=== PATIENT | female | born 1975 | race African-American/Black ===

== ENCOUNTER 2016-10-31 12:52 | Emergency (ER) | payer OTHER ==
[2016-10-31 12:56] VITALS: BMI 20.3
[2016-10-31] MEDS ORDERED: IBUPROFEN 400 MG TABLET (FP) PO ONE ×2 (13:30→13:39)
--- NOTE | 2016-10-31 13:36 | PDOC ---
History of Present Illness - General History Source: Patient - History of Present Illness Timing/Duration: reports: changing over time Quality: reports: mild Abdominal Pain Onset Location: reports: generalized abdomen <Stanislaw Bradley - Last Filed: 10/31/16 13:31> <Michael Torres - Last Filed: 11/02/16 20:01> - General Chief Complaint: Pain Stated Complaint: ABD PAIN Time Seen by Provider: 10/31/16 13:18 Past History - Past Medical History Suicide Attempt (Hx): No Other medical history: NONE - Immunization History Td Vaccination: No Immunization Up to Date: No - Psycho/Social/Smoking Cessation Hx Anxiety: No Suicidal Ideation: No Smoking Status: No Smoking History: Never smoked Years of Tobacco Use: 0 Number of Cigarettes Smoked Daily: 0 Cigars Per Day: 0 Hx Alcohol Use: No Drug/Substance Use Hx: No Substance Use Type: None <Stanislaw Bradley - Last Filed: 10/31/16 13:31> <BrianMichael - Last Filed: 11/02/16 20:01> - Past Medical History Allergies/Adverse Reactions: Allergies Allergy/AdvReac Type Severity Reaction Status Date / Time Penicillins Allergy Mild Hives Verified 10/31/16 12:56 epinephrine Allergy Verified 10/31/16 12:56 Home Medications: Ambulatory Orders No Home Medications 0 dose .ROUTE UTDICT 09/20/12 Review of Systems - Review of Systems Constitutional: Yes: Chills. No: Fever ABD/GI: No: Constipated, Diarrhea, Nausea, Vomiting <Stanislaw Bradley Last Filed: 10/31/16 13:31> *Physical Exam - Vital Signs Last Vital Signs Temp Pulse Resp BP Pulse Ox 97.6 F 87 20 129/82 100 10/31/16 12:53 10/31/16 12:53 10/31/16 12:53 10/31/16 12:53 10/31/16 12:53 - Physical Exam General Appearance: Yes: Appropriately Dressed. No: Apparent Distress HEENT: positive: Normal Voice Neck: positive: Supple Respiratory/Chest: negative: Respiratory Distress Gastrointestinal/Abdominal: positive: Normal Bowel Sounds, Soft. negative: Tender, Distended, Guarding, Rebound Integumentary: positive: Dry, Warm Neurologic: positive: Fully Oriented, Alert, Normal Mood/Affect <Stanislaw Bradley - Last Filed: 10/31/16 13:31> - Vital Signs Last Vital Signs Temp Pulse Resp BP Pulse Ox 98 F 79 17 130/81 98 10/31/16 13:47 10/31/16 13:47 10/31/16 13:47 10/31/16 13:47 10/31/16 13:47 <Michael Torres - Last Filed: 11/02/16 20:01> ED Treatment Course - Medications Given in the ED: ED Medications Discontinued Medications Generic Name Dose Route Start Last Admin Trade Name Karin PRN Reason Stop Dose Admin Ibuprofen 800 mg 10/31/16 13:30 10/31/16 13:40 Motrin - PO 10/31/16 13:31 800 mg ONCE ONE Administration <Michael Torres - Last Filed: 11/02/16 20:01> Medical Decision Making - Medical Decision Making 10/31/16 13:32 41 yo F, no sig hx, here w/ abd pain s/p injury. Pt reports that her 21 mo son jumped onto her abd this am. Unable to describe pain, 5/10 and improving. No n/ v or acute change in BM. See exam Minor abd injury No e/o serious injury, i.e bleed -dc w/ pain control, return precautions given <Stanislaw Bradley - Last Filed: 10/31/16 13:31> - Medical Decision Making 11/02/16 20:00 The patient was seen and evaluated in conjunction with BRADLEY Bradley under my direct supervision, ancillary studies were reviewed. I agree with the plan as outlined by BRADLEY Bradley . <Michael Torres - Last Filed: 11/02/16 20:01> *DC/Admit/Observation/Transfer <Stanislaw Bradley - Last Filed: 10/31/16 13:31> <Michael Torres - Last Filed: 11/02/16 20:01> Diagnosis at time of Disposition: Abdominal injury Qualifiers: Encounter type: initial encounter Qualified Code(s): S39.91XA - Unspecified injury of abdomen, initial encounter - Discharge Dispostion Disposition: HOME Condition at time of disposition: Good - Referrals Referrals: Severiano Newman MD [Primary Care Provider] - - Patient Instructions Printed Discharge Instructions: Contusion Additional Instructions: Return for worsening of symptoms
[2016-10-31 13:51] VITALS: BP 130/81; PULSE 79; TEMP 98
== END 2016-10-31 13:51 | disposition home or self-care (01) ==
LOC: JER 12:52
DX: S30.1XXA Contusion of abdominal wall, initial encounter (principal); W50.0XXA Accidental hit or strike by another person, initial encounter; Y93.89 Activity, other specified; Y92.018 Other place in single-family (private) house as the place of occurrence of the external cause
CPT/HCPCS: 99282-25

== ENCOUNTER 2017-02-07 23:50 | Emergency (ER) | payer OTHER ==
[2017-02-08 00:07] VITALS: BP 125/73; PULSE 98; TEMP 99.6; BMI 21.1
--- NOTE | 2017-02-08 03:00 | PDOC ---
History of Present Illness <Michael Torres - Last Filed: 02/08/17 03:02> - General History Source: Patient Exam Limitations: No Limitations - History of Present Illness Initial Comments: 02/08/17 05:06 The patient is a 41 year old female with no significant past medical history who presents to the ED for less than 24 hours of right breast pain. Patient reports she was in her usual state of health and around 4pm, she was her 2 y/o son and states that she does not believe he latched onto her nipple correctly. Subsequently, she started to develop diffuse body aches and subjective fever with pain to the right breast. States experiencing similar symptoms 2 years ago when she first started to breastfeed. The patient denies chills, cough, SOB, chest pain, and palpitations. The patient denies abdominal pain, nausea, vomiting, and diarrhea. Allergies: penicillins, epinephrine Social History: No alcohol, tobacco, or drug use reported. Past Surgical History: None reported PCP: Dr. Severiano Newman <Steph Rubin - Last Filed: 02/08/17 05:07> - General Chief Complaint: Redness To Affected Area Stated Complaint: INFECTION Time Seen by Provider: 02/08/17 01:49 Past History - Past Medical History Suicide Attempt (Hx): No Other medical history: denies - Immunization History Td Vaccination: No Immunization Up to Date: No - Psycho/Social/Smoking Cessation Hx Anxiety: No Suicidal Ideation: No Smoking Status: No Smoking History: Never smoked Years of Tobacco Use: 0 Number of Cigarettes Smoked Daily: 0 Cigars Per Day: 0 Hx Alcohol Use: No Drug/Substance Use Hx: No Substance Use Type: None <Michael Torres - Last Filed: 02/08/17 03:02> <Steph Rubin - Last Filed: 02/08/17 05:07> - Past Medical History Allergies/Adverse Reactions: Allergies Allergy/AdvReac Type Severity Reaction Status Date / Time Penicillins Allergy Mild Hives Verified 02/08/17 00:07 epinephrine Allergy Verified 02/08/17 00:07 Home Medications: Ambulatory Orders No Home Medications 0 dose .ROUTE UTDICT 09/20/12 Review of Systems - Review of Systems Able to Perform ROS?: Yes Comments:: 02/08/17 05:06 Constitutional - +fever Pt denies Chills, weakness, HEENT: denies vision changes, sore throat Musculoskeletal - +diffuse body aches, right breast pain denies back pain, joint swelling skin - denies bruising, erythema, rash neurological: denies headache, numbness, focal weakness, tingling, ataxia, weakness <Steph Rubin - Last Filed: 02/08/17 05:07> *Physical Exam - Vital Signs Last Vital Signs Temp Pulse Resp BP Pulse Ox 99.6 F 98 H 18 125/73 99 02/08/17 00:03 02/08/17 00:03 02/08/17 00:03 02/08/17 00:03 02/08/17 00:03 <Michael Torres - Last Filed: 02/08/17 03:02> - Vital Signs Last Vital Signs Temp Pulse Resp BP Pulse Ox 99.6 F 98 H 18 125/73 99 02/08/17 00:03 02/08/17 00:03 02/08/17 00:03 02/08/17 00:03 02/08/17 00:03 - Physical Exam Comments: 02/08/17 05:07 GENERAL: The patient is awake, alert, and fully oriented, Nontoxic - in no acute distress. HEAD: Normocephalic, atraumatic. EYES: extraocular movements intact, sclera anicteric, conjunctiva clear. ENT: Normal voice, Moist mucous membranes. NECK: Normal range of motion, supple without lymphadenopathy, JVD, or masses. MUSCULOSKELETAL: Right lateral breast there are several milk ducts palpable that are slightly tender, no signs of erythema, warmth, induration, no nipple discharge. NEUROLOGICAL: No facial asymmetry, Normal speech, normal gait. SKIN: Warm, Dry, normal turgor, no rashes or lesions noted. <Steph Rubin - Last Filed: 02/08/17 05:07> Medical Decision Making - Medical Decision Making 02/08/17 02:37 41y F presenting with breast pain and subjective fevers/body aches. she states she wa sbreast feeding her 2y old and felt like she didnt latch correctly. on exam the pt has mild tenderness to the latearl aspect of R breast with some palpable ducts . there are no erythema, warmth, inudration or other signs of infection. suspect her sypmtmos are secondary to blocked milk ducts will have pt apply heat, and have her manually milk the ducts supporive treatment at home. discussed signs of mastitis to keep an eye for I discussed the physical exam findings, ancillary test results and final diagnoses with the patient. I answered all of the patient's questions. The patient was satisfied with the care received and felt comfortable with the discharge plan and treatment plan. The patient will call their primary care physician within 24 hours to arrange follow-up and will return to the Emergency Department with any new, persistent or worsening symptoms. A portion of this note was documented by scribe services under my direction. I have reviewed the details of the note, within reason, and agree with the documentation with the following case summary and management plan written by me <Michael Torres - Last Filed: 02/08/17 03:02> *DC/Admit/Observation/Transfer - Discharge Dispostion Admit: No <Michael Torres - Last Filed: 02/08/17 03:02> - Attestations Scribe Attestion: 02/08/17 05:07 Documentation prepared by Steph Rubin, acting as medical practitioners for Michael Torres MD, /DO. <Steph Rubin - Last Filed: 02/08/17 05:07> Diagnosis at time of Disposition: Milk engorgement of breast - Discharge Dispostion Disposition: HOME Condition at time of disposition: Improved - Referrals Referrals: Severiano Newman MD [Primary Care Provider] - - Patient Instructions Additional Instructions: Symptoms are likely due to blocked milk ducts. TAke ibuprofen or tylenol for pain or discomfort. Try to manually express your milk. Apply a heating pad for comfort. If there is any redness, swelling, warmth to the area, it may represent an infection and you should come back here or go to dr. Newman for evaluation. Print Language: CZECH
== END 2017-02-08 03:05 | disposition home or self-care (01) ==
LOC: JER 23:50
DX: O92.79 Other disorders of lactation (principal)
CPT/HCPCS: 99281-25